=== PATIENT | male | born 1965 | race Caucasian/White ===

== ENCOUNTER 2017-04-15 08:12 | Emergency (ER) | payer BC ==
[~2017-04-15] VITALS: Ht 175.3 cm; Wt 124.5 kg
[~2017-04-15 08:12] MED LIST: AZITHROMYCIN 2250 MG PO; BENTYL20 MG PO; CEPHALEXIN 500500 M3 PO; FLEXERIL PO; FUROSEMIDE 40 M40 M1 PO; IBUPROFEN 800800 M1 PO; IBUPROFEN 800800 MG PO; KLOR-CON20 MEQ PO; LOPRESSOR50 PO; MOBIC7.5 MG PO; NAPROSYN375 MG PO; NAPROSYN500 MG PO; NORCO 5-325 TA1 EAC1 PO; NORCO 5-325 TA1 EACH PO; PERCOCET 5-3251 EACH PO; PERCOCET PO; ROBAXIN500 MG PO; VICODIN 5-5001 EACH PO; ZANAFLEX4 MG; ZOFRAN ODT4 MG PO
[2017-04-15] MEDS ORDERED: NEURONTIN 300300 M1 PO (08:22)
[2017-04-15] MEDS ORDERED: METFORMIN HCL500 MG PO (08:22)
[2017-04-15] MEDS ORDERED: DICLOFENAC SODI75 MG PO (08:22)
[2017-04-15] MEDS ORDERED: COZAAR 25 MG TA25 MG PO (08:23)
[2017-04-15] MEDS ORDERED: NORVASC5 MG PO (08:27)
[2017-04-15] MEDS ORDERED: CYCLOBENZAPRINE5 MG PO (08:27)
[2017-04-15 08:44] LABS: HEMATOCRIT 38.7 % (42.0-52.0); HEMOGLOBIN 13.6 gm/dL (14.0-18.0); MCH 32.7 pg (26.0-34.0); MCHC 35.1 g/dL (28.0-37.0); MCV 93.1 fL (80.0-100.0); MPV 7.6 fl. (7.2-11.1); RBC 4.16 mil/uL (4.50-6.00); WBC 7.4 thou/uL (4.0-11.0)
[2017-04-15 08:53] LABS: CALCIUM 8.9 mg/dL (8.5-10.1); CREATININE 1.2 mg/dL (0.6-1.3); POTASSIUM 3.9 mmol/L (3.5-5.1)
[2017-04-15] MEDS ORDERED: MIRALAX17 GM PO (09:22)
[2017-04-15 09:57] VITALS: BP 159/95
== END 2017-04-15 09:58 | disposition home or self-care (01) ==
LOC: M.ERS 08:12
PROVIDERS: Emergency Medicine Emergency Medical Services
DX: K59.00 Constipation, unspecified (principal); I10 Essential (primary) hypertension; F10.99 Alcohol use, unspecified with unspecified alcohol-induced disorder; Z87.01 Personal history of pneumonia (recurrent); Z98.890 Other specified postprocedural states; Z87.891 Personal history of nicotine dependence

== ENCOUNTER 2018-03-22 06:14 | Emergency (ER) | payer BC ==
[~2018-03-22] VITALS: Ht 175.3 cm; Wt 117.9 kg
[~2018-03-22 06:14] MED LIST changes: +COZAAR 25 MG TA25 MG PO; +CYCLOBENZAPRINE5 MG PO; +DICLOFENAC SODI75 MG PO; +METFORMIN HCL500 MG PO; +MIRALAX17 GM PO; +NEURONTIN 300300 M1 PO; +NORVASC5 MG PO
[2018-03-22 06:18] VITALS: BP 138/78
[2018-03-22] MEDS ORDERED: OZEMPIC0.25 MG/0. SUBQ (06:25)
[2018-03-22 06:43] LABS: URINE BILIRUBIN NEGATIVE (Negative); URINE BLOOD 1+ (Negative); URINE CLARITY CLEAR; URINE COLOR YELLOW; URINE GLUCOSE-RANDOM NEGATIVE (Negative); URINE KETONES NEGATIVE (Negative); URINE LEUKOCYTES-REFLEX NEGATIVE (Negative); URINE NITRITE-REFLEX NEGATIVE (Negative); URINE PROTEIN NEGATIVE (Negative); URINE SPECIFIC GRAVITY 1.025 (1.005-1.030); URINE UROBILINOGEN 0.2 E.U./dl (0.2-1.0)
[2018-03-22 06:51] LABS: BACTERIA-REFLEX 1-9 Few /HPF (None Seen); CASTS None Seen /LPF (None Seen); CRYSTALS None Seen /LPF (None Seen); MUCUS None Seen strn/LPF (None Seen); SQUAMOUS 0-3 Few /LPF (0-3); URINE RBC 3-10 Few /HPF (0-2); URINE WBC-REFLEX 0-5 Rare /HPF (0-5)
== END 2018-03-22 06:54 | disposition home or self-care (01) ==
LOC: M.ERS 06:14
PROVIDERS: Emergency Medicine
DX: M54.5 Low back pain (principal); R31.9 Hematuria, unspecified; I10 Essential (primary) hypertension; Z87.891 Personal history of nicotine dependence; Z87.01 Personal history of pneumonia (recurrent)

== ENCOUNTER 2019-09-04 17:30 | Emergency (ER) | payer OTHER ==
[~2019-09-04] VITALS: Ht 175.3 cm; Wt 110.2 kg
[~2019-09-04 17:30] MED LIST changes: +OZEMPIC0.25 MG/0. SUBQ
[2019-09-04] MEDS ORDERED: HYDROCHLOROTHIA25 M2 PO (17:43)
[2019-09-04] MEDS ORDERED: LIPITOR 10 MG10 M1 PO (17:43)
[2019-09-04] MEDS ORDERED: COZAAR 25 MG TA25 M1 PO (17:43)
[2019-09-04 18:24] LABS: ABSOLUTE EOSINOPHILS 0.3 thou/uL (0.0-0.7); ABSOLUTE LYMPHOCYTES 2.9 thou/uL (0.8-5.3); ABSOLUTE MONOCYTES 0.7 thou/uL (0.0-1.2); ABSOLUTE NEUTROPHILS 4.2 thou/uL (1.6-8.1); BASOPHILS 0.3 %; EOSINOPHILS 4.2 %; HEMATOCRIT 41.5 % (42.0-52.0); HEMOGLOBIN 14.5 gm/dL (14.0-18.0); LYMPHOCYTES 35.6 %; MCH 32.7 pg (26.0-34.0); MCHC 34.9 g/dL (28.0-37.0); MCV 93.6 fL (80.0-100.0); MONOCYTES 8.3 %; MPV 7.6 fl. (7.2-11.1); NUCLEATED RBCS 0 /100WBC; PLATELET COUNT* 241 thou/uL (150-400); POLYS 51.6 %; RBC 4.43 mil/uL (4.50-6.00); RDW-CV 13.2 % (10.5-14.5); WBC 8.1 thou/uL (4.0-11.0)
[2019-09-04 18:33] LABS: CALCIUM 9.1 mg/dL (8.5-10.1); CREATININE 1.2 mg/dL (0.6-1.3); POTASSIUM 3.2 mmol/L (3.5-5.1)
[2019-09-04 18:44] LABS: ALBUMIN 4.1 g/dL (3.4-5.0); TOTAL BILIRUBIN 1.9 mg/dL (<0.1-1.0); TOTAL PROTEIN 7.8 g/dL (6.4-8.2)
[2019-09-04] MEDS ORDERED: ATIVAN0.5 M1 PO (19:13)
[2019-09-04 19:25] VITALS: BP 121/80
--- NOTE | 2019-09-05 12:54 | EKG ---
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 : 1965 Requested By: Mónica Araujo Order Number: [id number] MD: Dagoberto Webster Measurements Intervals [place] Rate: 90 P: -12 NE: 155 QRS: 18 QRSD: 97 T: 18 QT: 362 QTc: 443 Interpretive Statements Sinus rhythm Baseline wander in lead(s) V2 Compared to ECG 02/06/2014 01:33:11 No significant changes Electronically Signed On 09-05-2019 12:52:08 CDT by Dagoberto Webster [email or web address] <ELECTRONICALLY SIGNED> By: Dagoberto Webster MD, [facility] 09/05/19 1252 1740 1740 Dagoberto Webster MD, [facility] /EPI
== END 2019-09-04 19:26 | disposition home or self-care (01) ==
LOC: M.ERS 17:30
PROVIDERS: Nurse Practitioner Family
DX: F41.9 Anxiety disorder, unspecified (principal); I10 Essential (primary) hypertension; E11.9 Type 2 diabetes mellitus without complications; Z98.52 Vasectomy status; Z87.891 Personal history of nicotine dependence

== ENCOUNTER 2020-09-13 17:31 | Emergency (ER) | payer OTHER ==
[~2020-09-13] VITALS: Ht 175.3 cm; Wt 113.4 kg
[~2020-09-13 17:31] MED LIST changes: +ATIVAN0.5 M1 PO; +COZAAR 25 MG TA25 M1 PO; +HYDROCHLOROTHIA25 M2 PO; +LIPITOR 10 MG10 M1 PO
[2020-09-13] MEDS ORDERED: ZOFRAN ODT4 MG PO (18:44)
[2020-09-13] MEDS ORDERED: VENTOLIN HFA 1818 GM INH (18:44)
[2020-09-13] MEDS ORDERED: FLEXERIL PO (18:57)
[2020-09-13 18:58] VITALS: BP 141/70
== END 2020-09-13 18:59 | disposition home or self-care (01) ==
LOC: M.ERS 17:31
DX: U07.1 COVID-19 (principal)